=== PATIENT | female | born 1940 | race Caucasian/White ===

== ENCOUNTER 2019-10-14 11:30 | Day surgery (SDC) | payer OTHER | END 2019-10-14 16:05 | disposition home or self-care (01) | LOC: AMB-ENDOS 11:30 | DX: K62.1 Rectal polyp (principal); K63.5 Polyp of colon; K57.30 Diverticulosis of large intestine without perforation or abscess without bleeding ==

== ENCOUNTER 2025-08-25 10:00 | Inpatient (IN) | payer OTHER ==
[~2025-08-25] VITALS: Ht 33 cm; Wt 53.1 kg
[2025-08-25] MEDS ORDERED: SYNTHROID100 MCG PO (12:27)
[2025-08-25] MEDS ORDERED: SIMVASTATIN10 MG PO (12:27)
[2025-08-25] MEDS ORDERED: COZAAR100 MG PO (12:27)
[2025-08-25 12:28] VITALS: BP 138/78
[2025-08-25] MEDS ORDERED: PRILOSEC OTC20 MG PO (12:28)
[2025-08-25] MEDS ORDERED: AMLODIPINE BESYL5 MG PO (12:28)
[2025-09-01] MEDS ORDERED: TRANEXAMIC ACID 100MG/1ML (1000MG) AMPUL IV ONE (11:30)
[2025-09-01] MEDS ORDERED: CEFAZOLIN SODIUM 1,000 MG VIAL IV ONE (11:30)
[2025-09-01] MEDS ORDERED: BUPIVACAINE HCL 30 ML VIAL IJ ONE (11:30)
[2025-09-01] MEDS ORDERED: LIDOCAINE HCL 1%/EPINEPHRINE 20ML VIAL IJ ONE (11:30)
[2025-09-01] MEDS ORDERED: MORPHINE SULFATE 4 MG/ML CARTRIDGE IV ONE (11:30)
[2025-09-01] MEDS ORDERED: ONDANSETRON HCL 2 MG/ML VIAL IV PRN (12:15)
[2025-09-01 14:28] VITALS: BP 137/73
[2025-09-01 16:00] VITALS: BP 143/68
[2025-09-01] MEDS ORDERED: ENALAPRILAT DIHYDRATE 1.25 MG/ML VIAL IV PRN (16:30)
[2025-09-01] MEDS ORDERED: SIMVASTATIN 10 MG TABLET PO SCH (17:00)
[2025-09-01] MEDS ORDERED: MORPHINE SULFATE 4 MG/ML CARTRIDGE IV SCH (18:00)
[2025-09-01] MEDS ORDERED: OxyCODONE HCL 5 MG TABLET (ROXICODONE) PO SCH (18:00)
[2025-09-01] MEDS ORDERED: CEFAZOLIN SODIUM 1,000 MG VIAL IV SCH (18:00)
[2025-09-01] MEDS ORDERED: ORPHENADRINE CITRATE 100 MG TABLET PO SCH (21:00)
[2025-09-01] MEDS ORDERED: GABAPENTIN 100 MG CAPSULE PO SCH (21:00)
[2025-09-02 00:50] VITALS: BP 142/71
[2025-09-02 01:41] LABS: BASO % 0.3 % (0.1-1.2); EOS # 0.00 (0.04-0.54); EOS % 0.0 % (0.7-7.0); LYMPH # 1.37 (1.18-3.74); LYMPH % 9.0 % (19.3-53.1); MEAN PLATELET VOLUME 10.70 fl (9.4-12.4); MONO # 1.04 (0.24-0.82); MONO % 6.9 % (4.7-12.5); NEUT # 12.65 (1.56-6.13); NEUT % 83.3 % (34.0-71.1); RED CELL DISTRIBUTION WIDTH 14.4 % (11.6-14.4)
[2025-09-02] MEDS ORDERED: LEVOTHYROXINE SODIUM 100 MCG TABLET PO SCH (06:00)
[2025-09-02 08:16] VITALS: BP 160/80
[2025-09-02] MEDS ORDERED: ENOXAPARIN SODIUM 30 MG/0.3 ML SYRINGE SUBCUTANEO SCH (09:00)
[2025-09-02] MEDS ORDERED: LOSARTAN POTASSIUM 100 MG TABLET PO SCH (09:00)
[2025-09-02] MEDS ORDERED: AMLODIPINE BESYLATE 5 MG TABLET PO SCH (09:00)
[2025-09-02] MEDS ORDERED: Cyanocobalamin/Mecobalamin 1 TAB.SL SL SCH (13:35)
[2025-09-02] MEDS ORDERED: SOD FERRIC GLUC COMPLX/SUCROSE 62.5 MG/5 ML AMPUL IV SCH (13:35)
[2025-09-02 14:02] VITALS: BP 137/72
[2025-09-02 15:47] LABS: COVID-19 AG NEGATIVE (NEGATIVE)
[2025-09-02 16:00] VITALS: BP 134/69
[2025-09-03 02:00] LABS: BASO % 0.2 % (0.1-1.2); EOS # 0.01 (0.04-0.54); EOS % 0.1 % (0.7-7.0); LYMPH # 2.62 (1.18-3.74); LYMPH % 15.8 % (19.3-53.1); MEAN PLATELET VOLUME 10.80 fl (9.4-12.4); MONO # 1.48 (0.24-0.82); MONO % 9.0 % (4.7-12.5); NEUT # 12.32 (1.56-6.13); NEUT % 74.5 % (34.0-71.1); RED CELL DISTRIBUTION WIDTH 14.1 % (11.6-14.4)
[2025-09-03 03:05] VITALS: BP 127/70
[2025-09-03 09:18] VITALS: BP 140/69
[2025-09-03] MEDS ORDERED: NORFLEX100MG PO (12:25)
[2025-09-03] MEDS ORDERED: XARELTO10 MG PO (12:26)
[2025-09-03] MEDS ORDERED: GABAPENTIN100 MG PO (12:26)
[2025-09-03] MEDS ORDERED: PERCOCET 5-3251 EACH PO (12:26)
[2025-09-03 16:55] VITALS: BP 140/70
== END 2025-09-03 18:25 | DRG 470 ==
LOC: O/R 09-01 07:00 → SURH 09-01 10:00 → OB/GYN 09-01 14:04
PROVIDERS: ADMIT Orthopaedic Surgery; ATTEND Orthopaedic Surgery
PROC: 0QUF0JZ Supplement Left Patella with Synthetic Substitute, Open Approach (ICD-10-PCS; 2025-09-01)
PROC: 0SRD0JZ Replacement of Left Knee Joint with Synthetic Substitute, Open Approach (ICD-10-PCS; principal; 2025-09-01 10:00)
DX: M17.12 Unilateral primary osteoarthritis, left knee (principal); D62 Acute posthemorrhagic anemia; E03.9 Hypothyroidism, unspecified; I10 Essential (primary) hypertension; Z96.652 Presence of left artificial knee joint